=== PATIENT | female | born 1980 | race Caucasian/White ===

== ENCOUNTER 2018-01-11 09:56 | Inpatient (IN) ==
[2018-01-05 18:08] LABS: Appearance,Urine CLEAR; Bacteria,Urine 0 /hpf (0); Bilirubin,Urine NEG (NEG); Color,Urine YELLOW; Glucose,Urine (UA) NEGATIVE (NEG); Leukocyte Esterase,Urine 25 /uL (NEG); Mucus,Urine FEW /hpf (0); Protein,Urine NEG (NEG); Specific Gravity,Urine 1.026 (1.000-1.035); Urine Blood NEG mg/dL (<0.03); Urine RBC 1 /hpf (0-1); Urine Squamous Epithelial Cell 2 /hpf (0-4); Urine WBC 2 /hpf (0-4); Urobilinogen,Urine NEG (NEG)
[2018-01-05 19:45] LABS: Blood Urea Nitrogen 13 mg/dl (6-20)
[2018-01-05 19:56] LABS: HCG,Serum NEGATIVE <10 (<10 mIU/ml)
[2018-01-05 20:11] LABS: Basophils # (Auto) 0.1 K/mcL (0.0-0.3); Basophils % (Auto) 0.6 % (0.0-2.0); Eosinophils # (Auto) 0.3 K/mcL (0.0-0.7); Eosinophils % (Auto) 2.8 % (0.0-7.0); Granulocytes % (Auto) 62.3 % (38.0-78.0); Lymphocytes # (Auto) 3.5 K/mcL (1.5-4.8); Lymphocytes % (Auto) 28.6 % (15.5-49.0); Mean Cell Volume 86.4 fL (80.0-100.0); Mean Corpuscular HGB Conc 33.4 g/dL (31.0-36.0); Mean Corpuscular Hemoglobin 28.9 pg (26.0-34.0); Monocytes # (Auto) 0.7 K/mcL (0.1-0.9); Monocytes % (Auto) 5.7 % (1.0-12.0); Platelet Count 333 K/mcL (140-440); RBC 4.79 M/mcL (4.00-5.20); Red Cell Distribution Width 13.6 % (11.5-14.5)
[~2018-01-11 09:56] MED LIST: CELECOXIB 200 MG CAPSULE PO SCH; IPRATROPIUM/ALBUTEROL 3 ML AMPUL.NEB NEB PRN; KETOROLAC 30 MG, ROPIVACAINE HCL/PF 49.5 ML, EPINEPHrine 0.5 MG, 0.9 % SODIUM CHLORIDE ... IJ SCH; PREGABALIN 75 MG CAPSULE PO SCH; SCOPOLAMINE 1 PATCH PATCH TOPICAL PRN; ceFAZolin 1 GM VIAL IV SCH; oxyCODONE 10 MG TAB.ER.12H PO SCH
[2018-01-11] MEDS ORDERED: BUPIVACAINE W/EPI 0.5% 50 ML VIAL IJ ONE (13:20)
[2018-01-11] MEDS ORDERED: MIDAZOLAM 5 MG/5 ML VIAL IV ONE (13:20)
[2018-01-11] MEDS ORDERED: ONDANSETRON 4 MG/2 ML VIAL IV ONE (13:20)
[2018-01-11] MEDS ORDERED: LIDOCAINE HCL/PF 100 MG/5 ML SYRINGE IV ONE (13:20)
[2018-01-11] MEDS ORDERED: GLYCOPYRROLATE 0.2 MG/ML VIAL IV ONE (13:20)
[2018-01-11] MEDS ORDERED: PROPOFOL 200 MG/20 ML VIAL IV ONE (13:20)
[2018-01-11] MEDS ORDERED: KETAMINE 100 MG/ML ML IV ONE (13:20)
[2018-01-11] MEDS ORDERED: TRANEXAMIC ACID 1,000 MG/10 ML VIAL IV ONE ×2 (13:20→15:12)
[2018-01-11] MEDS ORDERED: METHOCARBAMOL 1,000 MG/10 ML VIAL IV PRN (14:58)
[2018-01-11] MEDS ORDERED: MEPERIDINE 50 MG/ML INJECTION IV PRN (14:58)
[2018-01-11] MEDS ORDERED: ACETAMINOPHEN 1,000 MG/100 ML BOTTLE IV ONE (14:58)
[2018-01-11] MEDS ORDERED: ONDANSETRON 4 MG/2 ML VIAL IV PRN ×2 (14:58→15:12)
[2018-01-11] MEDS ORDERED: IPRATROPIUM/ALBUTEROL 3 ML AMPUL.NEB NEB PRN (14:58)
[2018-01-11] MEDS ORDERED: fentaNYL 100 MCG/2 ML VIAL IV PRN (14:58)
[2018-01-11] MEDS ORDERED: LACTATED RINGERS 1,000 ML IV SCH (15:00)
[2018-01-11] MEDS ORDERED: BISACODYL 10 MG SUPP.RECT PR PRN (15:12)
[2018-01-11] MEDS ORDERED: FLEETS ADULT ENEMA PR PRN (15:12)
[2018-01-11] MEDS ORDERED: BENZOCAINE/MENTHOL 1 LOZENGE PO PRN (15:12)
[2018-01-11] MEDS ORDERED: MAGNESIUM HYDROXIDE 30 ML ORAL.SUSP PO PRN (15:12)
[2018-01-11] MEDS ORDERED: POLYETHYLENE GLYCOL 3350 17 GM PACKET PO PRN (15:12)
--- NOTE | 2018-01-11 15:12 | Brief Operative Note ---
Date of procedure: 01/11/18 Pre-op diagnosis: Right knee severe DJD Post-op diagnosis: same Procedure: 1) Right robotic assisted total knee arthroplasty 2) Hardware removal deep of femoral button and tibial screw and sleeve Grafts/Implants: Yes (Arnett Triathlon 3 CR femur, 3 tibia, 9mm insert, 33 patella) Anesthesia: spinal, GLMA Findings: multicompartment bone on bone arthritis Complications: none Surgeon: Jean Tripp Hot Iron Worker: Elias Watt Estimated blood loss (cc): 30 Specimens Removed/Pathology: none sent Condition: stable Disposition: PACU
[2018-01-11] MEDS ORDERED: SUMAtriptan SUCCINATE 50 MG TABLET PO PRN (15:30)
--- NOTE | 2018-01-11 16:14 | XRay Report ---
CLINICAL INFORMATION: Reason for Exam:Post-op total knee. COMPARISON: None. FINDINGS: Total knee prosthesis is anatomically aligned. No osseous abnormalities. Soft tissue swelling seen as expected IMPRESSION: Negative Interpreted and Authenticated by: Luke Erazo 01/11/18
[2018-01-11] MEDS: 0.9 % SODIUM CHLORIDE 1,000 ML IV SCH ×2 (16:41→23:59)
[2018-01-11] MEDS: KETOROLAC 30 MG/ML VIAL IV SCH ×2 (17:57→23:37)
[2018-01-11] MEDS: HYDROcodone/APAP 10/325MG TABLET PO PRN ×2 (19:11→21:18)
[2018-01-11] MEDS ORDERED: SENNOSIDES 1 TABLET PO SCH (21:00)
[2018-01-11] MEDS: DOCUSATE SODIUM 100 MG CAPSULE PO SCH (21:18)
[2018-01-11] MEDS: ASPIRIN 325 MG ENTERIC COATED TABLET PO SCH (21:18)
[2018-01-11] MEDS: ceFAZolin 1 GM VIAL IV SCH (21:19)
[2018-01-11] MEDS: 0.9 % SODIUM CHLORIDE 10 ML SYRINGE IV SCH (21:49)
[2018-01-12] MEDS: HYDROcodone/APAP 10/325MG TABLET PO PRN ×3 (02:23→11:41)
[2018-01-12] MEDS: ceFAZolin 1 GM VIAL IV SCH (04:43)
[2018-01-12] MEDS: HYDROmorphone 2 MG/ML VIAL IV PRN ×2 (04:43→05:04)
[2018-01-12] MEDS: KETOROLAC 30 MG/ML VIAL IV SCH ×2 (06:00→11:21)
[2018-01-12] MEDS: 0.9 % SODIUM CHLORIDE 10 ML SYRINGE IV SCH (06:01)
--- NOTE | 2018-01-12 07:34 | Discharge Summary ---
Providers - Providers Patient information: Note initiated : 01/12/18 at 7:32 am Service Date, if different from initiated Date: [] Patient: Anjana Swann 37 y/o F admitted on 01/11/18 for Right Total Knee Arthroplasty - Abilio. Chief Complaint: [] Discharge date: 01/12/18 Hospitalization Hospital course: Pt was admitted for a R TKA. Pt underwent the procedure on the day of admission. Pt spent one night on the floor prior to discharge.Pt was dischraged with appropriate pain medication and ASA for DVT prophylaxis. Pt will attend out -pt PT and f/u at [facility] in 2 weeks. Discharge diagnosis: R knee osteoarthritis Exam - Exam Clean and dry: Yes Weight bearing status: as tolerated Ortho Discharge - TKA - Patient Instructions Diet: Regular Diet Activity: activity as tolerated Total Knee Protocol: For Total Knee: Start ROM SHANTI with stationary bike or rocking chair. Work on gaining full extension of knee. Posterior dislocation precautions provided. Hip abductor strengthening and gait training instructions provided. Apply Cryocuff as instructed. Dressing Care: May shower in 2 days - Follow Up Plan Disposition: Home, Self-Care Prognosis: Good Rehab Potential: Good Overall status at discharge: patient is progressing back to baseline - Orders For Discharge Prescriptions: Aspirin [Ecotrin] 325 mg PO BID #30 tab.ec HYDROcodone/APAP 10/325MG [[place] 10-325Mg] 1 - 2 tab PO Q4HP PRN #90 tab PRN Reason: Pain Level 3-6 Pending Studies Resuscitation Status Full Code Diet Regular Diet Start TueJan 11 1514 Hydrocodone Bitart/Acetaminophen ([place] 10/325mg) 0 tab PO Q4HP PRN PRN Reason: PAIN LEVEL 3-6 Last Admin: 01/12/18 02:23 Dose: 2 tab Admin: 01/11/18 21:18 Dose: 1 tab Admin: 01/11/18 19:11 Dose: 1 tab Aspirin (Ecotrin) 325 mg PO BID [facility] Last Admin: 01/11/18 21:18 Dose: 325 mg Docusate Sodium (Colace) 100 mg PO BID [facility] Last Admin: 01/11/18 21:18 Dose: 100 mg Hydromorphone HCl (Dilaudid) 0 mg IV Q2HP PRN PRN Reason: PAIN LEVEL > 6 Last Admin: 01/12/18 05:04 Dose: 0.5 mg Admin: 01/12/18 04:43 Dose: 0.5 mg Sodium Chloride (Sodium Chloride 0.9%) 1,000 mls @ 125 mls/hr IV .Q8H [facility] Last Infusion: 01/12/18 00:05 Dose: 0 mls/hr Admin: 01/11/18 23:59 Dose: Admin: 01/11/18 16:41 Dose: 125 mls/hr Ketorolac Tromethamine (Toradol) 30 mg IV Q6 [facility] Stop: 01/13/18 12:01 Last Admin: 01/12/18 06:00 Dose: 30 mg Admin: 01/11/18 23:37 Dose: 30 mg Admin: 01/11/18 17:57 Dose: 30 mg Senna (Senokot) 2 tab PO HS [facility] Last Admin: 01/11/18 21:18 Dose: 2 tab Sodium Chloride (Saline Flush) 10 ml IV Q8 [facility] Last Admin: 01/12/18 06:01 Dose: 10 ml Admin: 01/11/18 21:49 Dose: Not Given Shift Summary 01/12/18 06:11 Shift Summary by Arpita Gray Alert and oriented. Up with SBA and FWW. Ambulated in hallway for 100ft. 18G IV to RFA, SL. Dressing to right knee, CDI. AV Boots on. Voiding well, PVR was 74- 89. On menses, sahil pad in place. Medicated with 1 tab [place] x2 and 2 tabs [place] x1. Also medicated with 0.5 mg Dilaudid x2 this am for spasms and pain not controlled. Placed 2L O2 NC after dilaudid administration. Initialized on 01/12/18 06:11 - END OF NOTE
--- NOTE | 2018-01-12 07:46 | Operative Note ---
DATE OF OPERATION: 01/11/2018 PREOPERATIVE DIAGNOSIS: Right knee severe osteoarthritis. POSTOPERATIVE DIAGNOSIS: Right knee severe osteoarthritis. PROCEDURES PERFORMED: 1. Right robotic-assisted total knee arthroplasty placing a Mey triathlon size 3 cruciate retaining femoral component, a size 3 tibial baseplate with a 33 mm X3 tibial insert. 2. Removal of prior ACL hardware including the femoral button and tibial interference screw and sleeve. SURGEON: Jean Tripp MD. THREAD TWISTER: Michael Watt PA-C. ANESTHESIA: Spinal plus general. DRAINS: None. SPECIMENS: Bone cuts and removed ACL hardware that was discarded. BLOOD LOSS: 20 mL COMPLICATIONS: None. POSTOPERATIVE CONDITION: Stable. INDICATIONS FOR SURGERY: This is a 37-year-old female who had a history of a knee injury, I believe in 2002, and had an anterior cruciate ligament reconstruction. She has had longstanding progressive worsening right knee pain. Radiographs showed advanced arthritis with joint space loss and osteophytes. FINDINGS AT SURGERY: She has full-thickness cartilage loss off the medial and patellofemoral compartments. Post implantation showed satisfactory limb alignment, patellar tracking, and joint stability. PROCEDURE IN DETAIL: The patient had been seen preoperatively. Informed consent had been obtained after discussion of risks and benefits of surgery. Risks including, but not limited to, bleeding, possibly requiring transfusion; infection, possibly requiring implant removal and prolonged IV antibiotics; injury to nerves, blood vessels, and other surrounding structures; anesthetic risks; incomplete or no resolution of symptoms; DVT and pulmonary embolus risks; stiffness, pain, swelling, instability, high probability of needing a revision joint surgery given her young age. She understood these risks and wished to proceed. Correct operative site was marked and then patient was taken to the operating room after spinal anesthesia was given. LMA general was performed and then the right lower extremity was carefully prepped and draped in normal sterile fashion and a timeout was performed verifying patient name, operative site, and plan. Esmarch was used to exsanguinate the extremity and tourniquet was inflated to 350 mmHg. A midline incision was made with a scalpel through skin and subcutaneous tissue. IrriSept was irrigated and then a medial parapatellar arthrotomy made. Subperiosteal exposure was done of the anterior medial tibia and we encountered her tibial interference screw. This was a plastic screw which we used the ACL screwdriver to remove and then used a rongeur to pull out the sleeve as this appeared to be an Intrafix type fixation. We then went ahead and removed what remained of her medial meniscus and then excised the lateral meniscus. ACL graft was transected and the retropatellar fat pad was excised. We made two stab incisions over the tibia and two over the femur and placed bicortical pins. We then connected the arrays. We also did a freehand cut of the patella removing 9 mm of bone. We placed a cut protector. We irrigated IrriSept in the joint and then we did our hip center of rotation check. The green probe was used to guillermo our medial and lateral malleoli and double checked our femoral and tibial checkpoints. We then used the blue probe to do our mapping. Once this was completed, we then used a rongeur to remove osteophytes. The flexion, extension gaps were checked. She was interestingly tight in extension medially and loose medially in flexion. We did, with adjustment of the implant, get to within 1 mm symmetric gaps on all 4 measurements. Once we adjusted the implant to our liking, we then used the robotic arm to make our bone cuts. Tibia was subluxed forward and posterior horns of menisci removed. We prepared the tibia with a boss reamer and keel punch, externally rotated as maximally as bone coverage would allow. We then went ahead and placed a keeled tibial trial. The femur was elevated and posterior osteophytes removed with curved osteotome and curet. We then placed the femoral trial and pinned this into place. We drilled our peg holes and then attempted to place a 9 insert trial. She was tight and her PCL was very tight on the anterior fibers so we went ahead and recessed this off of the anterior femoral notch. This then allowed us to get the 9 insert in without levering up the insert excessively as previous. We then took the knee into extension. It went to between 5 and 10 degrees short of full extension. We then prepared the patella with a size 33 medializing it maximally. Once holes were drilled the patellar insert trial placed. Limited lateral facetectomy was performed. We checked our patellar tracking, which was good, so we went ahead and removed trial implants while definitive implants were opened. We irrigated the joint with IrriSept. We made a bone plug for the tibial tunnel after cleaning this out where her interference screw had been. Antibiotic cement was mixed. We cemented the tibia and excess cement removed. We then cemented the femur and excess cement removed. The 9 insert trial was impacted and then the knee was taken into extension and another inspection and removal of cement was done. We then cemented the patellar button and after removing excess cement we removed our tibial and femoral checkpoints. We then filled the joint with IrriSept and then injected pain cocktail into the pericapsular and subcutaneous tissues. We removed the pins for the arrays and then suctioned out the IrriSept. I palpated where the femoral button was-it was partially covered with bone. A 1/4 inch osteotome was used to release this off the femur and then we irrigated copiously with saline. We flexed the knee up and removed the 9 insert trial. We opened a 9 insert and injected pain cocktail in the posterior capsule and then impacted the definitive insert. The knee was then taken into approximately 45 degrees of flexion and pulse lavaged copiously with saline. We used #2 FiberWire [id number] around the superior quadrant of the patella, a #1 Vicryl [id number] were used around the inferior quadrant, running #1 Vicryl was used for patellar tendon and quad tendon repair. Final IrriSept irrigation was done, after a minute final pulse lavage, then 2-0 Monocryl for subcutaneous tissue and davidson for skin. Xeroform and sterile dressing were applied. Tourniquet was released and patient was then awakened, extubated, and transferred to recovery in stable condition. [email or web address] Job ID: [id number] Doc ID: [id number] Jean Tripp MD
[2018-01-12] MEDS: 0.9 % SODIUM CHLORIDE 1,000 ML IV SCH (07:57)
[2018-01-12] MEDS: ASPIRIN 325 MG ENTERIC COATED TABLET PO SCH (08:04)
[2018-01-12] MEDS: DOCUSATE SODIUM 100 MG CAPSULE PO SCH (08:04)
[2018-01-12] MEDS ORDERED: CITALOPRAM 20 MG TABLET PO SCH (09:00)
== END 2018-01-12 12:30 | disposition home or self-care (01) | DRG 470 ==
LOC: MEDSUR 09:56
PROVIDERS: ADMIT Orthopaedic Surgery; ATTEND Orthopaedic Surgery